=== PATIENT | female | born 1965 | race Native Hawaiian/Other Pacific Islander ===

== ENCOUNTER 2021-06-17 16:38 | Emergency (ER) | payer OTHER ==
[~2021-06-17] VITALS: Ht 165.1 cm; Wt 61.2 kg
[2021-06-17 17:18] LABS: PLATELET COUNT 246 K/uL (152-353)
[2021-06-17 17:25] LABS: POTASSIUM 3.9 mmol/L (3.6-5.2)
[2021-06-17 17:59] VITALS: BP 125/65; TEMP 98.3
== END 2021-06-17 18:02 | disposition home or self-care (01) ==
LOC: ED 16:38
PROVIDERS: Emergency Medicine
DX: R25.2 Cramp and spasm (principal); D64.89 Other specified anemias
CPT/HCPCS: 36415; 80048; 85027; 96372; 99283; J1885; J2360